=== PATIENT | male | born 1960 | race African-American/Black ===

== ENCOUNTER 2017-05-01 00:08 | Inpatient (IN) | payer MEDICAID ==
[~2017-05-01] VITALS: Ht 175.3 cm; Wt 80.0 kg
[2017-05-01] MEDS ORDERED: ONDANSETRON 2MG/ML, 2ML IVPush ONE (00:30)
[2017-05-01] MEDS ORDERED: ACETAMINOPHEN 325 MG TABLET PO ONE (00:30)
[2017-05-01] MEDS ORDERED: LORazepam 2 MG/ML, 1ML IVPush ONE (00:30)
[2017-05-01] MEDS ORDERED: MORPHINE SULFATE 4 MG/ML, 1ML IVPush PRN (00:30)
[2017-05-01] MEDS ORDERED: SODIUM CHLORIDE FLUSH 10ML SYR IVF ONE (00:30)
[2017-05-01] MEDS ORDERED: SODIUM CHLORIDE 0.9% 1,000ML IVBOLUS ONE ×2 (00:30→02:00)
[2017-05-01] MEDS ORDERED: ACETAMINOPHEN 325 MG TABLET ONE (00:43)
[2017-05-01] MEDS ORDERED: ONDANSETRON 2MG/ML, 2ML ONE (00:44)
[2017-05-01 00:45] LABS: BASOPHILS # (AUTO) 0.02 x10^3/uL (0-0.1); BASOPHILS % (AUTO) 0 % (0-1); EOSINOPHILS # (AUTO) 0.01 x10^3/uL (0-0.4); EOSINOPHILS % (AUTO) 0 % (1-7); LYMPHOCYTES # (AUTO) 0.67 x10^3/uL (1-3.4); LYMPHOCYTES % (AUTO) 7 % (22-44); MD NO; MEAN CORPUSCULAR HEMOGLOBIN 30.1 pg (27.5-34.5); MEAN CORPUSCULAR HGB CONC 33.9 g/dL (33.2-36.2); MEAN CORPUSCULAR VOLUME 88.6 fL (81-97); MEAN PLATELET VOLUME 7.5 fL (7.4-10.4); MONOCYTES # (AUTO) 0.38 x10^3/uL (0.2-0.8); MONOCYTES % (AUTO) 4 % (2-9); NEUTROPHILS # (AUTO) 8.44 x10^3/uL (1.8-6.8); NEUTROPHILS % (AUTO) 89 % (42-75); PLATELET COUNT 215 x10^3/uL (130-400); RED BLOOD COUNT 5.22 x10^6/uL (4.38-5.82); RED CELL DISTRIBUTION WIDTH 13.2 % (9.4-14.8)
[2017-05-01 00:58] LABS: ALANINE AMINOTRANSFERASE 177 U/L (12-78); ALBUMIN 3.5 g/dL (3.4-5.0); ANION GAP 8 mmol/L (5-15); CALCIUM 8.6 mg/dL (8.5-10.1); CHLORIDE 106 mmol/L (98-107)
[2017-05-01 01:02] LABS: RAPID INFLUENZA A Negative (Negative); RAPID INFLUENZA B Negative (Negative)
[2017-05-01 01:03] LABS: ALKALINE PHOSPHATASE 124 U/L (45-117); CREATININE 1.05 mg/dL (0.7-1.3); TOTAL PROTEIN 7.9 g/dL (6.4-8.2); TROPONIN I < 0.015 ng/mL (0.000-0.045)
[2017-05-01] MEDS ORDERED: CEFTRIAXONE PMX 1GM/50ML 50 ML ONE (01:22)
[2017-05-01] MEDS ORDERED: CEFTRIAXONE PMX 1GM/50ML 50 ML IVPB ONE (01:30)
[2017-05-01] MEDS ORDERED: AZITHROMYCIN 500 MG in SODIUM CHLORIDE 0.9% 250 ML IVPB ONE (01:30)
[2017-05-01 02:15] LABS: AMPHETAMINE SCREEN, URINE Negative (Negative); BARBITURATE SCREEN, URINE Negative (Negative); BENZODIAZEPINE SCREEN, URINE Negative (Negative); CANNABINOID SCREEN, URINE Negative (Negative); COCAINE SCREEN, URINE Negative (Negative); METHADONE SCREEN, URINE Negative (Negative); OPIATE SCREEN, URINE Negative (Negative)
[2017-05-01 02:16] LABS: CULTURE INDICATED? YES; MICROSCOPIC INDICATED
[2017-05-01] MEDS ORDERED: ONDANSETRON ODT 4 MG PO PRN (04:30)
[2017-05-01] MEDS ORDERED: ONDANSETRON 2MG/ML, 2ML IVPush PRN (04:30)
[2017-05-01] MEDS ORDERED: PROMETHAZINE 25 MG/ML, 1ML IM PRN (04:30)
[2017-05-01] MEDS ORDERED: SODIUM CHLORIDE 0.9% 1,000 ML IV ONE (05:00)
[2017-05-01 05:34] VITALS: BP 128/73
[2017-05-01] MEDS: HEPARIN 5,000 UNITS/ML, 1ML SQ SCH ×2 (05:40→12:49)
[2017-05-01] MEDS ORDERED: ASPIRIN 325 MG TABLET EC PO SCH (06:00)
[2017-05-01] MEDS ORDERED: FLU VACC QS2017-18 (36MOS+) UP/PF 0.5 ML IM-VACC ONE (06:30)
[2017-05-01] MEDS ORDERED: PNEUMOCOCCAL 23 VACCINE IM-VACC ONE (06:30)
[2017-05-01] MEDS: SODIUM CHLORIDE 0.9% 1,000 ML IV SCH ×2 (07:36→15:00)
[2017-05-01 08:00] VITALS: BP 106/64
[2017-05-01 08:33] LABS: ALANINE AMINOTRANSFERASE 124 U/L (12-78); ALBUMIN 2.5 g/dL (3.4-5.0); ANION GAP 7 mmol/L (5-15); CALCIUM 7.3 mg/dL (8.5-10.1); CHLORIDE 112 mmol/L (98-107); CREATININE 0.87 mg/dL (0.7-1.3); MEAN CORPUSCULAR HEMOGLOBIN 30.3 pg (27.5-34.5); MEAN CORPUSCULAR VOLUME 89.2 fL (81-97); MEAN PLATELET VOLUME 7.4 fL (7.4-10.4); PLATELET COUNT 182 x10^3/uL (130-400); RED BLOOD COUNT 4.31 x10^6/uL (4.38-5.82); RED CELL DISTRIBUTION WIDTH 13.5 % (9.4-14.8)
[2017-05-01 08:34] LABS: HEMOGRAM NOTE RECHECKED
[2017-05-01 08:36] LABS: ALKALINE PHOSPHATASE 86 U/L (45-117); TOTAL PROTEIN 5.8 g/dL (6.4-8.2)
[2017-05-01 08:59] LABS: MD YES
[2017-05-01 09:02] LABS: BAND#(MANUAL) 0.19 x10^3/uL; BANDS%(MANUAL) 1 % (0-7); LYMPHS% (MANUAL) 12 % (22-44); MONOS#(MANUAL) 0.58 x10^3/uL (0.3-2.7); MONOS% (MANUAL) 3 % (2-9); SEG#(MANUAL) 16.13 x10^3/uL (1.8-6.8); SEGS% (MANUAL) 84 % (42-75)
[2017-05-01 09:03] LABS: <PLATELET ESTIMATE> ADEQUATE; <PLT MORPHOLOGY> NORMAL PLT MORPH; <RBC MORPHOLOGY> NORMAL
[2017-05-01] MEDS: ACETAMINOPHEN 325 MG TABLET PO PRN (11:10)
[2017-05-01 13:26] LABS: OCCULT BLOOD NEGATIVE (NEGATIVE)
[2017-05-01 13:58] VITALS: BP 114/68
[2017-05-01] MEDS: GUAIFENESIN/DM 200-20MG, 10ML UDC PO PRN ×2 (15:00→20:56)
[2017-05-01 18:34] VITALS: BP 127/76
[2017-05-01] MEDS: LACTATED RINGERS 1,000 ML IV SCH (19:18)
[2017-05-01] MEDS: FAMOTIDINE 20 MG/2 ML IVPush SCH (20:33)
[2017-05-02] MEDS ORDERED: CEFTRIAXONE PMX 1GM/50ML 50 ML IV SCH (01:00)
[2017-05-02] MEDS: CEFTRIAXONE PMX 2GM/50ML 50 ML IV SCH (01:01)
[2017-05-02 01:35] VITALS: BP 139/78
[2017-05-02] MEDS: AZITHROMYCIN 500 MG in SODIUM CHLORIDE 0.9% 250 ML IV SCH (02:47)
[2017-05-02] MEDS: LACTATED RINGERS 1,000 ML IV SCH ×2 (02:51→11:00)
[2017-05-02] MEDS: ACETAMINOPHEN 325 MG TABLET PO PRN ×2 (06:33→20:49)
[2017-05-02 07:18] VITALS: BP 118/72
[2017-05-02] MEDS: FAMOTIDINE 20 MG/2 ML IVPush SCH ×2 (09:15→20:50)
[2017-05-02 13:13] VITALS: BP 142/80
[2017-05-02 16:23] LABS: ANION GAP 4 mmol/L (5-15); CALCIUM 8.4 mg/dL (8.5-10.1); CHLORIDE 105 mmol/L (98-107); CREATININE 0.94 mg/dL (0.7-1.3); MEAN CORPUSCULAR HEMOGLOBIN 30.2 pg (27.5-34.5); MEAN CORPUSCULAR HGB CONC 33.9 g/dL (33.2-36.2); MEAN CORPUSCULAR VOLUME 89.1 fL (81-97); MEAN PLATELET VOLUME 7.4 fL (7.4-10.4); PLATELET COUNT 209 x10^3/uL (130-400); RED BLOOD COUNT 4.54 x10^6/uL (4.38-5.82); RED CELL DISTRIBUTION WIDTH 13.4 % (9.4-14.8)
[2017-05-02 16:51] LABS: BASOPHILS # (AUTO) 0.02 x10^3/uL (0-0.1); BASOPHILS % (AUTO) 0 % (0-1); EOSINOPHILS # (AUTO) 0.06 x10^3/uL (0-0.4); EOSINOPHILS % (AUTO) 1 % (1-7); LYMPHOCYTES # (AUTO) 1.23 x10^3/uL (1-3.4); LYMPHOCYTES % (AUTO) 10 % (22-44); MD SCAN; MONOCYTES # (AUTO) 0.93 x10^3/uL (0.2-0.8); MONOCYTES % (AUTO) 8 % (2-9); NEUTROPHILS # (AUTO) 10.07 x10^3/uL (1.8-6.8); NEUTROPHILS % (AUTO) 82 % (42-75)
[2017-05-02] MEDS ORDERED: methylPREDNISolone SOD SUCC 125 MG/2 ML IVPush ONE (19:30)
[2017-05-02 19:55] VITALS: BP 123/74
[2017-05-02] MEDS: KETOROLAC 30 MG/1 ML IVPush SCH (20:50)
[2017-05-03] MEDS: CEFTRIAXONE PMX 2GM/50ML 50 ML IV SCH (01:01)
[2017-05-03] MEDS: KETOROLAC 30 MG/1 ML IVPush SCH ×2 (02:33→09:13)
[2017-05-03] MEDS: AZITHROMYCIN 500 MG in SODIUM CHLORIDE 0.9% 250 ML IV SCH (02:33)
[2017-05-03 02:38] VITALS: BP 110/69
[2017-05-03 08:26] VITALS: BP 119/73
[2017-05-03] MEDS: FAMOTIDINE 20 MG/2 ML IVPush SCH ×2 (09:13→20:37)
[2017-05-03] MEDS ORDERED: CEFD300C37 PO (10:48)
[2017-05-03] MEDS ORDERED: GUAI5SYR PO (10:48)
[2017-05-03 15:27] VITALS: BP 114/69
[2017-05-03 19:30] VITALS: BP 122/77
[2017-05-04] MEDS: CEFTRIAXONE PMX 2GM/50ML 50 ML IV SCH (00:54)
[2017-05-04 01:35] VITALS: BP 135/78
[2017-05-04] MEDS: AZITHROMYCIN 500 MG in SODIUM CHLORIDE 0.9% 250 ML IV SCH (02:40)
[2017-05-04] MEDS: GUAIFENESIN/DM 200-20MG, 10ML UDC PO PRN (02:46)
[2017-05-04] MEDS: FAMOTIDINE 20 MG/2 ML IVPush SCH (08:48)
[2017-05-04 10:38] VITALS: BP 130/83
== END 2017-05-04 11:34 | disposition home or self-care (01) | DRG 871 ==
LOC: ED 01:12 → EDIP 01:40 → 4NOR 05:20 → DCLOUNGE 05-04 11:25
PROVIDERS: ADMIT Surgery; ATTEND Surgery
DX: A41.9 Sepsis, unspecified organism (principal); J15.9 Unspecified bacterial pneumonia; J96.01 Acute respiratory failure with hypoxia; L97.429 Non-pressure chronic ulcer of left heel and midfoot with unspecified severity; B19.20 Unspecified viral hepatitis C without hepatic coma; M21.372 Foot drop, left foot; Z87.891 Personal history of nicotine dependence
CPT/HCPCS: 36415; 71010; 80048; 80053; 80307; 81001; 82272; 83605; 83735; 84100; 84145; 84484; 85025; 87040; 87086; 87400; 90686; 90732; 93005; 96361; 96365; 96366; 96367; 96375; J0456; J0696; J1644; J1885; J2405; G0479; J2930; J7030; J7050; J7120; S0028

== ENCOUNTER 2017-06-18 02:58 | Emergency (ER) | payer MEDICAID ==
[~2017-06-18] VITALS: Ht 172.7 cm; Wt 77.7 kg
[~2017-06-18 02:58] MED LIST: CEFD300C37 PO; GUAI5SYR PO
[2017-06-18 03:09] VITALS: BP 122/81
[2017-06-18] MEDS ORDERED: CEFTRIAXONE 250 MG IM ONE (04:00)
[2017-06-18] MEDS ORDERED: AZITHROMYCIN 500 MG TABLET PO ONE (04:00)
[2017-06-18] MEDS ORDERED: AZITHROMYCIN 500 MG TABLET ONE (04:24)
[2017-06-18] MEDS ORDERED: CEFTRIAXONE 250 MG ONE (04:25)
== END 2017-06-18 04:42 | disposition home or self-care (01) ==
LOC: ED 04:37
DX: A56.01 Chlamydial cystitis and urethritis (principal); Z20.2 Contact with and (suspected) exposure to infections with a predominantly sexual mode of transmission; A54.9 Gonococcal infection, unspecified; F17.200 Nicotine dependence, unspecified, uncomplicated
CPT/HCPCS: 87491; 87591; 96372; 99284; J0696